=== PATIENT | female | born 1945 | race Caucasian/White ===

== ENCOUNTER 2024-12-31 08:41 | Emergency (ER) | payer MEDICARE, SELFPAY ==
[2024-12-31 08:42] VITALS: BMI 25.7
[2024-12-31 08:52] VITALS: BP 189/99; PULSE 80; RESP 19; TEMP 36.6; O2SAT 98
--- NOTE | 2024-12-31 09:00 | XR_ITS ---
Examination: Lumbar spine 3 views Technique one AP lateral coned lateral lower lumbar spine 3 views Date and time: December 31, 2024, 0959 hrs. Indications: Injury to lower back 3 days ago with lower back pain. Findings: Thoracolumbar dextroscoliosis 12 degrees Severe osteopenia No acute lumbar fracture Mild diffuse lumbar disc narrowing Impression: No acute lumbar fracture
--- NOTE | 2024-12-31 09:00 | XR_ITS ---
Examination: Thoracic spine 3 views Technique: AP lateral coned lateral upper dorsal spine 3 views Date and time: December 31, 2024, 0957 hrs. Indications: Injury to the mid back 2 days ago with back pain. Findings: Severe osteopenia. Thoracic levoscoliosis 12 degrees. No acute thoracic fracture. Mild to moderate diffuse thoracic degenerative disc disease. Impression: No acute thoracic fracture
--- NOTE | 2024-12-31 09:08 | EDNOTE_ITS ---
<Statement entered by Shea Hardy MD - 01/15/25 06:34> As co-signing physician, I was present and available for consult prn. I concur with the plan and care as documented by the midlevel provider. ED Back Injury Pain RME/HPI General Chief Complaint: Back Pain/Injury Stated Complaint: fall HURTING LOWER BACK Time Seen by Provider: 12/31/24 08:43 Source: patient Arrival date/time: 12/31/24 08:41 79-year-old female with no known medical history presents to the emergency room with a chief complaint of lumbar back pain x 2 days. Patient states [place] when she had a ground-level fall and landed on her back. Mode of arrival: ambulatory Limitations: no limitations Related Data Home Medications ?Medication ?Instructions ?Recorded ?Confirmed nifedipine 60 mg tablet,extended 60 mg PO QDAY 8 07/31/17 release 24 hr potassium chloride 10 mEq 10 meq PO QDAY 07/31/1707/15 capsule,extended release Previous Rx's ?Medication ?Instructions ?Recorded cyclobenzaprine 10 mg tablet 10 mg PO TID #14 tabs ibuprofen 600 mg tablet 600 mg PO Q8H PRN fever or p ain 12/31/24 #20 tabs Allergies Allergy/AdvReac Type Severity Reaction Status Date / Time Penicillins Allergy Unknown swelling Verified 12/31/24 08:45 Review of Systems Review of Systems Systems Reviewed: All systems reviewed, normal except as documented Constitutional Constitutional: Reports system reviewed and no additional complaints, except as documented, Denies fatigue, Denies fever(s), Denies headache(s) and Denies weakness Eyes Eyes: Reports system reviewed and no additional complaints, except as documented, Denies blurry vision and Denies change in vision ENT Ears, Nose, Mouth, and Throat: Reports system reviewed and no additional complaints, except as documented, Denies otalgia, Denies headache(s), Denies nasal congestion, Denies throat swelling and Denies vertigo Cardiovascular Cardiovascular: Reports system reviewed and no additional complaints, except as documented, Denies chest pain, Denies dyspnea and Denies dyspnea on exertion Respiratory Respiratory: Reports system reviewed and no additional complaints, except as documented, Denies chest congestion, Denies cough, Denies dyspnea, Denies dyspnea on exertion and Denies wheezing Gastrointestinal Gastrointestinal: Reports system reviewed and no additional complaints, except as documented, Denies abdominal pain, Denies cramping, Denies nausea and Denies vomiting Genitourinary Genitourinary: Reports system reviewed and no additional complaints, except as documented Musculoskeletal Musculoskeletal: Reports system reviewed and no additional complaints, except as documented and Reports back pain Integumentary/Breasts Skin/Breast: Reports system reviewed and no additional complaints, except as documented and Denies wounds Neurologic Neurologic: Reports system reviewed and no additional complaints, except as documented, Denies confusion, Denies headache(s), Denies lack of coordination, Denies vertigo and Denies weakness Psychiatric Psychiatric: Reports system reviewed and no additional complaints, except as documented, Denies anxiety, Denies confusion, Denies depression, Denies paranoia, Denies suicidal ideation and Denies tactile hallucinations Endocrine Endocrine: Reports system reviewed and no additional complaints, except as documented and Denies fatigue Hematologic/Lymphatic Hematologic/Lymphatic: Reports system reviewed and no additional complaints, except as documented and Denies lymphadenopathy Allergic/Immunologic Allergic/Immunologic: Reports system reviewed and no additional complaints, except as documented, Denies throat swelling, Denies urticaria and Denies whee zing Past Medical History Past Medical History CARDIAC: Positive Hypertension; Negative Congestive Heart Failure RESPIRATORY: Negative Chronic Obstructive Pulmonary Disease (COPD) GASTROINTESTINAL: Positive Gall Bladder Disease GENITOURINARY: Negative Renal Disease ENDOCRINE: Negative Diabetes Mellitus Type 1 or Diabetes Mellitus Type 2 Social History SMOKING STATUS: Never smoker ED Exam General Limitations: Present no limitations General appearance: Present alert and in no apparent distress Head Head exam: Present atraumatic Eye Eye exam: Present normal appearance, PERRL and EOMI ENT ENT exam: Present normal exam, normal oropharynx and mucous membranes moist Neck Neck exam: Present normal inspection, full ROM and trachea midline Chest Chest inspection: Present normal inspection and symmetric chest wall rise Respiratory Respiratory exam: Present normal lung sounds bilaterally Cardiovascular Cardiovascular exam: Present regular rate, normal rhythm and normal heart sounds Abdominal Exam Abdominal exam: Present soft and normal bowel sounds Extremities Exam Extremities exam: Present normal inspection and full ROM Back Exam Back exam: Present normal inspection, full ROM, tenderness and vertebral tenderness Neurological Exam Neurological exam: Present alert, oriented X3 and CN II-XII intact Psychiatric Psychiatric exam: Present normal affect and normal mood Skin Skin exam: Present warm, dry, intact and normal color Course Quality Measures none Orders Category Date Time Status XR lumbar spine 2-3V Stat Exams 12/31/24 09:00 Completed XR thoracic spine 3V Stat Exams 12/31/24 09:00 Completed Ketorolac Inj [Toradol Inj] Med 12/31/24 09:00 Discontinued 30 mg IM X1 ONE Vital Signs Vital signs: Vital Signs Temperature 97.9 F 12/31/24 08:52 Pulse Rate 80 12/31/24 08:52 Respiratory Rate 19 12/31/24 08:52 Blood Pressure 189/99 H 12/31/24 08:52 Pulse Oximetry (%) 98 12/31/24 08:52 Oxygen Delivery Method Room Air 12/31/24 08:52 Back Pain / Injury MDM Narrative MDM Narrative:: 79-year-old female with no known medical history presents to the emergency room with a chief complaint of lumbar back pain x 2 days. Patient states she was [place] hay when she had a ground-level fall and landed on her back. Patient is hemodynamically stable and in no apparent distress Physical examination shows tenderness to the lumbar and thoracic area of the patient's spine with palpation. The patient is able to ambulate patient denies any loss of bowel or bladder function patient denies any numbness to the lower extremities. X-ray of the lumbar spine was completed and was negative for any acute fracture or dislocation. X-ray of the thoracic spine was completed and was negative for any acute fracture or dislocation Patient was discharged and educated to follow-up with primary care provider in the next 24 to 48 hours and return to the emergency room for any evidence of worsening signs or symptoms Patient data External records reviewed:: [facility] previous records Clinical information provided by:: patient Social determinants that could affect healthcare access:: none Patient has the following chronic illnesses:: No chronic illness How is presenting disease/condition affected by chronic disease/condition?: no chronic disease Evaluation data The following diagnostics were reviewed and interpreted by me:: lab results and radiology exam(s) Lab and/or radiology exams considered but not ordered:: Labs and radiology exams considered and ordered Interpretation Summary: Lumbar [id number]: Thoracolumbar dextroscoliosis 12 degrees Severe osteopenia No acute lumbar fracture Mild diffuse lumbar disc narrowing Impression: No acute lumbar fracture Thoracic [id number]: Severe osteopenia. Thoracic levoscoliosis 12 degrees. No acute thoracic fracture. Mild to moderate diffuse thoracic degenerative disc disease. Impression: No acute thoracic fracture Medications / Prescriptions Medications or Prescriptions considered but not ordered:: Medication given Medication administrations:: Medication Administration History Discontinued Medications Ketorolac Tromethamine (Ketorolac Inj 60 Mg/2 Ml Vial) 30 mg IM X1 ONE Stop: 12/31/24 09:01 Last Admin: 12/31/24 09:09 Dose: 30 mg Documented By: DB Medication given Consultations Consultation(s) initiated? (list below): No Diagnosis Differential diagnosis back pain/injury: lumbar radiculopathy, strain of lumbar region, thoracic back pain and discitis Most likely diagnosis given after review of the tests above:: Strain of lumbar region Admission Indicated Admission indicated?: not indicated Admission Request Was there a request for admission?: No Disposition Plan Disposition Plan: Discharge Discharge Attestation Discharge Attestation: The patient and all family members were given an opportunity to ask questions and understood the discharge instructions. Discharge instructions specifically effects, indications for sooner follow up or return to the emergency department, and the expected course of current diagnosis. Patient condition: Stable Discharge Plan Plan Patient Disposition: HOME (Self Care) Discharge Disposition comment: Stable Prescriptions/Referrals Prescriptions/Med Rec: New ibuprofen 600 mg tablet 600 mg PO Q8H PRN (Reason: fever or pain) Qty: 20 0RF cyclobenzaprine 10 mg tablet 10 mg PO TID Qty: 14 0RF No Action potassium chloride 10 mEq Capsule, Extended Release 10 meq PO QDAY nifedipine 60 mg Tablet Extended Release 24 Hr 60 mg PO QDAY Referrals: Jericho Burks MD [Primary Care Provider] - In 1 week Problem List Clinical Impression: Strain of lumbar region Patient/Caregiver Discharge Instructions Education Materials: ED Back Sprain/Strain Additional Instructions: Please follow-up with your primary care provider in the next 24 to 48 hours X-ray of your lumbar spine and thoracic spine were completed and were negative for any acute fracture or dislocation For any evidence of worsening signs or symptoms return to the emergency room immediately Print Language: Yoruba Stand Alone Forms: Grisel Award Info., Patient Portal Info Letter PA/LANEY Supervising Physician PAULA/LANEY Supervising Physician: Dr. HARDY
[2024-12-31] MEDS: KETOROLAC INJ 60 MG/2 ML VIAL 30 MG IM (09:09)
== END 2024-12-31 11:54 | disposition home or self-care (01) ==
PROVIDERS: Emergency Provider Emergency Medicine; PCP Family Medicine
DX: S39.012A Strain of muscle, fascia and tendon of lower back, initial encounter (principal); M85.80 Other specified disorders of bone density and structure, unspecified site; M41.9 Scoliosis, unspecified; M51.34 Other intervertebral disc degeneration, thoracic region; W18.30XA Fall on same level, unspecified, initial encounter; Z88.0 Allergy status to penicillin
CPT/HCPCS: 72072; 72100; 96372; 99283; J1885